=== PATIENT | female | born 1970 | race African-American/Black ===

== ENCOUNTER 2017-06-30 17:57 | Emergency (ER) | payer BC, OTHER ==
[~2017-06-30] VITALS: Ht 170.2 cm; Wt 86.2 kg
[2017-06-30] MEDS ORDERED: LEVOTHYROXINE 0.1 MG PO (18:11)
[2017-06-30] MEDS ORDERED: LOTREL 10-20 M1 EACH PO (18:12)
[2017-06-30] MEDS ORDERED: NORFLEX100 MG PO (19:07)
[2017-06-30] MEDS ORDERED: IBUPROFEN 800800 M1 PO (19:08)
[2017-06-30 19:54] VITALS: BP 138/74
== END 2017-06-30 19:55 | disposition home or self-care (01) ==
LOC: ER 17:57
DX: S29.012A Strain of muscle and tendon of back wall of thorax, initial encounter (principal); S46.912A Strain of unspecified muscle, fascia and tendon at shoulder and upper arm level, left arm, initial encounter; Z88.0 Allergy status to penicillin; V49.9XXA Car occupant (driver) (passenger) injured in unspecified traffic accident, initial encounter; Y93.89 Activity, other specified; Y92.89 Other specified places as the place of occurrence of the external cause; Y99.8 Other external cause status